=== PATIENT | female | born 1990 | race African-American/Black ===

== ENCOUNTER 2023-10-09 10:36 | Emergency (ER) | payer OTHER ==
[2023-10-09 11:16] VITALS: BP 102/68; PULSE 69; RESP 18; TEMP 98.2; BMI 27.0
[2023-10-09 12:06] LABS: URINE APPEARANCE CLEAR; URINE BILIRUBIN NEGATIVE (NEGATIVE); URINE COLOR YELLOW; URINE GLUCOSE (UA) NEGATIVE (NEGATIVE); URINE KETONE NEGATIVE (NEGATIVE); URINE LEUK ESTERASE NEGATIVE (NEGATIVE); URINE NITRITE NEGATIVE (NEGATIVE); URINE PROTEIN NEGATIVE (NEGATIVE); URINE UROBILINOGEN 0.2 mg/dL (0.2-1.0)
[2023-10-09 12:15] LABS: BASO % 0.6 % (0-2.0); EOS % 0.9 % (0-4.5); HEMATOCRIT 37.6 % (32.4-45.2); HEMOGLOBIN 12.6 GM/dL (10.7-15.3); LYMPH % 30.2 % (8-40); MCH 30.2 pg (25.7-33.7); MCHC 33.5 g/dl (32.0-36.0); MEAN CELL VOLUME 90.2 fl (80-96); MEAN PLT VOLUME 8.4 fl (7.5-11.1); MONO % 5.7 % (3.8-10.2); NEUT % 62.6 % (42.8-82.8); PLATELET COUNT 259 10^3/uL (134-434); RBC 4.17 M/mm3 (3.60-5.2); RDW 13.8 % (11.6-15.6); WHITE BLOOD COUNT 6.9 K/mm3 (4.0-10.0)
[2023-10-09 12:23] LABS: POTASSIUM 4.4 mmol/L (3.5-5.1)
[2023-10-09 12:26] LABS: ALBUMIN 3.8 g/dl (3.4-5.0); CALCIUM 8.8 mg/dL (8.5-10.1)
[2023-10-09 12:27] LABS: BLOOD UREA NITROGEN 13.8 mg/dL (7-18)
[2023-10-09 12:29] LABS: CREATININE 0.7 mg/dL (0.55-1.3); HCG,QUALITATIVE URINE Negative
[2023-10-09 12:31] LABS: BILIRUBIN,TOTAL 0.4 mg/dL (0.2-1); TOT PROT 7.5 g/dl (6.4-8.2)
[2023-10-09] MEDS: SODIUM CHLORIDE 0.9% 500 ML INFUS.BAG IV ONE (13:17)
[2023-10-09] MEDS ORDERED: MECLIZINE HCL 25 MG TABLET (FP) ONE (13:26)
[2023-10-09] MEDS: MECLIZINE HCL 25 MG TABLET (FP) PO ONE (13:39)
== END 2023-10-09 13:43 | disposition home or self-care (01) ==
LOC: JER 10:36
DX: N92.0 Excessive and frequent menstruation with regular cycle (principal); R42 Dizziness and giddiness; R10.30 Lower abdominal pain, unspecified; T38.4X5A Adverse effect of oral contraceptives, initial encounter
CPT/HCPCS: 36415; 80053; 81003; 84703; 85025; 99284-25